=== PATIENT | female | born 1995 | race Caucasian/White ===

== ENCOUNTER 2021-05-05 05:49 | Inpatient (IN) ==
[2021-05-05] MEDS ORDERED: Naloxone 0.4 MG/ML INJ IVP PRN ×2 (06:23→10:48)
[2021-05-05] MEDS ORDERED: Azithromycin 500 MG in 0.9 % Sodium Chloride 250 ML IVPB PRN (06:23)
[2021-05-05] MEDS ORDERED: Famotidine 20 MG/2 ML VIAL IVP PRN (06:23)
[2021-05-05] MEDS ORDERED: *HR* Nalbuphine 10 MG/ML AMPUL IV PRN (06:23)
[2021-05-05] MEDS ORDERED: Lidocaine 1% 20 ML MDV ID PRN (06:23)
[2021-05-05] MEDS ORDERED: Metoclopramide 10 MG/2 ML VIAL IVP PRN (06:23)
[2021-05-05] MEDS ORDERED: Ondansetron 4 MG/2 ML VIAL IVP PRN ×2 (06:23→10:48)
[2021-05-05] MEDS ORDERED: miSOPROStoL 25 MCG TABLET PO PRN (06:23)
[2021-05-05 07:03] LABS: Basophils % 0.2 %; Eosinophils # 0.1 K/mcL (0.0-0.6); Eosinophils % 0.5 %; Hematocrit 32.4 % (35.3-44.9); Hemoglobin 10.9 g/dL (11.5-15.4); Immature Granulocytes % 0.6 % (0-4); Lymphocytes # 1.9 K/mcL (0.6-4.6); Lymphocytes % 19.5 %; Mean Corpuscular HGB Conc 33.6 g/dL (31.6-35.5); Mean Corpuscular Hemoglobin 31.2 pg (28.0-33.3); Mean Corpuscular Volume 92.8 fL (83.0-100.0); Mean Platelet Volume 11.7 fL (9.4-12.4); Monocytes # 0.6 K/mcL (0.0-1.3); Monocytes % 6.1 %; Neutrophils # 7.3 K/mcL (1.6-8.9); Platelet Count 191 K/mcL (140-400); Red Blood Count 3.49 M/mcL (3.82-4.97); Red Cell Distribution Width 13.6 % (11.5-14.5); Segmented Neutrophils % 73.1 %
[2021-05-05 08:23] LABS: Influenza A PCR Negative (Negative); Influenza B PCR Negative (Negative); Resp. Syncytial Virus PCR Negative (Negative); SARS-CoV-2 by PCR (In House) Negative (Negative)
[2021-05-05] MEDS: Ringers Solution, Lactated 1,000 ML IVC SCH ×3 (08:49→13:48)
[2021-05-05 10:05] LABS: Amphetamine Screen,Urine Negative ng/mL (Cutoff=1000); Barbiturate Screen,Urine Negative ng/mL (Cutoff=200); Benzodiazepines Screen,Urine Negative ng/mL (Cutoff=200); Cannabinoid Screen,Urine Negative ng/mL (Cutoff = 50); Cocaine Screen,Urine Negative ng/mL (Cutoff= 300); Opiate Screen,Urine Negative ng/mL (Cutoff=300); Phencyclidine Screen,Urine Negative ng/mL (Cutoff=25)
[2021-05-05] MEDS ORDERED: *HR* FentaNYL (PF) 100 MCG/2 ML VIAL EP ONE (10:48)
[2021-05-05] MEDS ORDERED: Ropivacaine/PF 0.2% 20 ML VIAL EP ONE (10:48)
[2021-05-05] MEDS ORDERED: EPHEDrine 50 MG/ML VIAL IVP PRN (10:48)
[2021-05-05] MEDS: Epidural Premix (fent/bupiv) 110 ML EP SCH ×2 (11:52→18:57)
[2021-05-05] MEDS ORDERED: Oxytocin 20 units/ LR 1000 mL 20 UNIT/1,000 ML BAG IVC SCH ×2 (12:45→23:00)
[2021-05-05] MEDS ORDERED: Ropivacaine/PF 0.2% 20 ML VIAL ONE (18:37)
[2021-05-05] MEDS ORDERED: Ibuprofen 600 MG TABLET PO ONE (22:46)
[2021-05-05] MEDS ORDERED: Benzocaine/Menthol 56 GM AEROSOL SPRAY TP PRN (22:54)
[2021-05-05] MEDS ORDERED: Lanolin 7 G OINT...G. TP PRN (22:54)
[2021-05-05] MEDS ORDERED: Ondansetron ODT 4 MG TAB.RAPDIS SL PRN (22:54)
[2021-05-05] MEDS ORDERED: *HR* OxyCODONE Immed Rel 5 MG TABLET PO PRN (22:54)
[2021-05-06] MEDS: Acetaminophen 325 MG TABLET PO SCH ×4 (01:31→23:16)
[2021-05-06] MEDS: Ibuprofen 600 MG TABLET PO SCH ×3 (05:43→18:30)
[2021-05-06 08:03] LABS: Basophils % 0.1 %; Eosinophils % 0.1 %; Hematocrit 27.2 % (35.3-44.9); Immature Granulocytes % 0.5 % (0-4); Lymphocytes # 1.3 K/mcL (0.6-4.6); Lymphocytes % 8.7 %; Mean Corpuscular HGB Conc 33.1 g/dL (31.6-35.5); Mean Corpuscular Hemoglobin 31.4 pg (28.0-33.3); Mean Corpuscular Volume 94.8 fL (83.0-100.0); Mean Platelet Volume 11.5 fL (9.4-12.4); Monocytes # 0.9 K/mcL (0.0-1.3); Monocytes % 5.7 %; Neutrophils # 12.7 K/mcL (1.6-8.9); Platelet Count 145 K/mcL (140-400); Red Blood Count 2.87 M/mcL (3.82-4.97); Red Cell Distribution Width 13.9 % (11.5-14.5); Segmented Neutrophils % 84.9 %; White Blood Count 14.9 K/mcL (4.3-11.1)
[2021-05-06] MEDS: Prenatal Vit/FA 1 EACH TABLET PO SCH (09:16)
[2021-05-07] MEDS: Ibuprofen 600 MG TABLET PO SCH ×2 (00:49→09:40)
[2021-05-07 08:03] VITALS: BP 128/91; TEMP 97.7; O2SAT 98
[2021-05-07 09:36] VITALS: PULSE 76
[2021-05-07] MEDS: Prenatal Vit/FA 1 EACH TABLET PO SCH (09:40)
== END 2021-05-07 12:58 | disposition home or self-care (01) | DRG 807 ==
LOC: 1NENULAB 05:49 → 1NENUOBS 05-06 00:33
PROVIDERS: ADMIT Advanced Practice Midwife; ATTEND Advanced Practice Midwife